=== PATIENT | female | born 1955 | race Caucasian/White ===

== ENCOUNTER → 2020-04-15 13:49 | Outpatient (REF) | payer MEDICARE, MEDICAID, SELFPAY ==
--- NOTE | 2020-04-15 13:10 | ECG_ITS ---
Hook-up date: 2020-04-15 14:07:00 Duration: 22:41:00 Test Indications: dizziness Medications: 65779 QRS complexes 3402 Ventricular ectopics which represent 6 % of total QRS comp. 169 Supraventricular ectopics which represent <1 % of total QRS comp. 8 Paced QRS complexs which represent <1 % of total QRS comp. VENTRICULAR ECTOPY 3024 Isolated 3 Bigeminal Cycles 157 Couplets 20 Runs 64 Beats in Runs 5 Beats LONGEST at 91 BPM at 04:53:35 2020-04-16 3 Beats FASTEST at 151 BPM at 21:59:30 2020-04-15 SUPRAVENTRICULAR ECTOPY 161 Isolated 4 Couplets 0 Runs 0 Beats in Runs * Beats LONGEST at * BPM at :: -- * Beats FASTEST at * BPM at :: -- HEART RATES 33 MIN at 03:30:17 2020-04-16 56 AVG 82 MAX at 20:18:52 2020-04-15 LONGEST RR 1.2000 secs at 03:30:16 2020-04-16 S-T LEVELS Channel 1 - 128 mm at 14:07:00 2020-04-15 - 128 mm at 14:07:00 2020-04-15 Channel 2 - 128 mm at 14:07:00 2020-04-15 - 128 mm at 14:07:00 2020-04-15 Channel 3 - 128 mm at 03:32:61 -- - 128 mm at 03:32:61 Underlying atrial rhyhm is sinus and atrial paced rhythm; average rate 56/min; range 33-82/min; Ventricular rhythm is mostly sensed (with bundle branch morphology) and some ventricular paced beats; Occasional PVCs; mostly isolated; few runs noted; longest 5 beats; During to pacing, counters may not be accurate; Patient did not report any symptoms in the diary Referred By: Kimberley Mike Overread By: ANGIE HAAS
== END ==
LOC: HO.CARD 13:49
PROVIDERS: PCP Internal Medicine; Visit Provider Psychiatry & Neurology Neurology
DX: R42 Dizziness and giddiness (principal)
CPT/HCPCS: 93225; 93226